=== PATIENT | female | born 1955 | race Hispanic/Latino ===

== ENCOUNTER → 2017-12-28 | Outpatient (CLI) | payer SELFPAY ==
[~2017-12-28] MED LIST: LIDOCAINE VISC 2% SOLN 15 ML UDC ONE; LIDOCAINE/PRILOCAINE 2.5-2.5% KIT ONE
== END ==
LOC: WCC 16:18
PROVIDERS: ATTEND Family Medicine Adult Medicine
DX: T81.89XA Other complications of procedures, not elsewhere classified, initial encounter (principal); M96.89 Other intraoperative and postprocedural complications and disorders of the musculoskeletal system; I10 Essential (primary) hypertension; K76.9 Liver disease, unspecified

== ENCOUNTER → 2018-01-01 | Outpatient (CLI) | payer OTHER ==
[2018-01-01 09:10] LABS: BASOPHILS % 0.6 % (0.0-1.0); EOSINOPHILS % 0.6 % (0.0-6.0); HEMATOCRIT 37.8 % (34.2-44.1); HEMOGLOBIN 12.3 g/dL (12.0-16.0); LYMPHOCYTES # (AUTO) 1.6 (1.0-3.2); LYMPHOCYTES % 29.7 % (18.0-39.1); MEAN CORPUSCULAR HEMOGLOBIN 30.6 pg (28-32); MEAN CORPUSCULAR HGB CONC 32.5 g/dL (31-35); MONOCYTES # (AUTO) 0.4 (0.2-0.8); MONOCYTES % 7.4 % (4.4-11.3); NEUTROPHILS # (AUTO) 3.3 (2.1-6.9); NEUTROPHILS % 61.5 % (38.7-80.0); PLATELET COUNT 315 x10e3/uL (140-360); RED BLOOD COUNT 4.02 x10e6/uL (3.6-5.1); RED CELL DISTRIBUTION WIDTH 13.2 % (11.7-14.4)
[2018-01-01 09:33] LABS: ALANINE AMINOTRANSFERASE 20 IU/L (0-55); ALBUMIN 3.9 g/dL (3.5-5.0); ALBUMIN/GLOBULIN RATIO 1.1 (0.8-2.0); ALKALINE PHOSPHATASE 97 IU/L (40-150); ANION GAP 15.3 mmol/L (8-16); BLOOD UREA NITROGEN 23 mg/dL (7-26); BUN/CREATININE RATIO 34 (6-25); CARBON DIOXIDE 27 mmol/L (22-29); CHLORIDE 104 mmol/L (98-107); CREATININE, SERUM 0.67 mg/dL (0.57-1.11); EST GLOMERULAR FILTRATION RATE > 60 ML/MIN (60-); GLUCOSE 90 mg/dL (74-118); POTASSIUM 4.3 mmol/L (3.5-5.1); SODIUM 142 mmol/L (136-145)
[2018-01-01 09:53] LABS: ERYTHROCYTE SEDIMENTATION RATE 55 mm/hr (0-20)
== END ==
LOC: LAB 08:33
PROVIDERS: ATTEND Family Medicine Adult Medicine
DX: S01.80XA Unspecified open wound of other part of head, initial encounter (principal)
CPT/HCPCS: 36415; 80053; 83036; 84134; 85025; 85651; 86140

== ENCOUNTER → 2018-01-04 | Outpatient (CLI) | payer SELFPAY | LOC: WCC 01:00 | PROVIDERS: ATTEND Family Medicine Adult Medicine | DX: T81.89XA Other complications of procedures, not elsewhere classified, initial encounter (principal); M96.89 Other intraoperative and postprocedural complications and disorders of the musculoskeletal system; I10 Essential (primary) hypertension; K76.9 Liver disease, unspecified ==

== ENCOUNTER → 2018-01-11 | Outpatient (CLI) | payer SELFPAY | LOC: WCC 12:46 | PROVIDERS: ATTEND Family Medicine Adult Medicine | DX: T81.89XA Other complications of procedures, not elsewhere classified, initial encounter (principal); M96.89 Other intraoperative and postprocedural complications and disorders of the musculoskeletal system; I10 Essential (primary) hypertension; K76.9 Liver disease, unspecified ==

== ENCOUNTER → 2018-01-18 | Outpatient (CLI) | payer SELFPAY | LOC: WCC 15:09 | PROVIDERS: ATTEND Family Medicine Adult Medicine | DX: T81.89XA Other complications of procedures, not elsewhere classified, initial encounter (principal); M96.89 Other intraoperative and postprocedural complications and disorders of the musculoskeletal system; I10 Essential (primary) hypertension; K76.9 Liver disease, unspecified ==

== ENCOUNTER → 2018-01-23 | Outpatient (CLI) | payer SELFPAY | LOC: WCC 12:06 | PROVIDERS: ATTEND Family Medicine Adult Medicine | DX: T81.89XA Other complications of procedures, not elsewhere classified, initial encounter (principal); M96.89 Other intraoperative and postprocedural complications and disorders of the musculoskeletal system; I10 Essential (primary) hypertension; K76.9 Liver disease, unspecified ==

== ENCOUNTER → 2018-01-30 | Outpatient (CLI) | payer SELFPAY | LOC: EDSEX → WCC 12:27 | PROVIDERS: ATTEND Family Medicine Adult Medicine | DX: T81.89XA Other complications of procedures, not elsewhere classified, initial encounter (principal); I10 Essential (primary) hypertension; K76.9 Liver disease, unspecified; M96.89 Other intraoperative and postprocedural complications and disorders of the musculoskeletal system ==

== ENCOUNTER → 2018-02-06 | Outpatient (CLI) | payer SELFPAY | LOC: WCC 02-05 16:34 | PROVIDERS: ATTEND Family Medicine Adult Medicine | DX: T81.89XA Other complications of procedures, not elsewhere classified, initial encounter (principal); M96.89 Other intraoperative and postprocedural complications and disorders of the musculoskeletal system; I10 Essential (primary) hypertension; K76.9 Liver disease, unspecified ==

== ENCOUNTER → 2018-02-20 | Outpatient (CLI) | payer SELFPAY ==
[~2018-02-20] MED LIST changes: -LIDOCAINE VISC 2% SOLN 15 ML UDC ONE
== END ==
LOC: WCC 11:46
PROVIDERS: ATTEND Family Medicine Adult Medicine
DX: T81.89XA Other complications of procedures, not elsewhere classified, initial encounter (principal); M96.89 Other intraoperative and postprocedural complications and disorders of the musculoskeletal system; I10 Essential (primary) hypertension; K76.9 Liver disease, unspecified

== ENCOUNTER → 2018-02-27 | Outpatient (CLI) | payer SELFPAY | LOC: WCC 11:06 | PROVIDERS: ATTEND Family Medicine Adult Medicine | DX: T81.89XA Other complications of procedures, not elsewhere classified, initial encounter (principal); M96.89 Other intraoperative and postprocedural complications and disorders of the musculoskeletal system; I10 Essential (primary) hypertension; K76.9 Liver disease, unspecified ==

== ENCOUNTER → 2018-03-06 | Outpatient (CLI) | payer SELFPAY | LOC: EDSEX → WCC 12:12 | PROVIDERS: ATTEND Family Medicine Adult Medicine | DX: T81.89XA Other complications of procedures, not elsewhere classified, initial encounter (principal); M96.89 Other intraoperative and postprocedural complications and disorders of the musculoskeletal system; I10 Essential (primary) hypertension; K76.9 Liver disease, unspecified ==

== ENCOUNTER → 2018-03-13 | Outpatient (CLI) | payer SELFPAY | LOC: EDSEX → WCC 10:10 | PROVIDERS: ATTEND Family Medicine Adult Medicine | DX: T81.89XA Other complications of procedures, not elsewhere classified, initial encounter (principal); M96.89 Other intraoperative and postprocedural complications and disorders of the musculoskeletal system; I10 Essential (primary) hypertension; K76.9 Liver disease, unspecified ==

== ENCOUNTER → 2018-03-20 | Outpatient (CLI) | payer SELFPAY | LOC: EDSEX → WCC 09:18 | PROVIDERS: ATTEND Family Medicine Adult Medicine | DX: T81.89XA Other complications of procedures, not elsewhere classified, initial encounter (principal); M96.89 Other intraoperative and postprocedural complications and disorders of the musculoskeletal system; I10 Essential (primary) hypertension; K76.9 Liver disease, unspecified ==

== ENCOUNTER → 2018-03-27 | Outpatient (CLI) | payer SELFPAY | LOC: EDSEX → WCC 12:43 | PROVIDERS: ATTEND Family Medicine Adult Medicine | DX: T81.89XA Other complications of procedures, not elsewhere classified, initial encounter (principal); M96.89 Other intraoperative and postprocedural complications and disorders of the musculoskeletal system; I10 Essential (primary) hypertension; K76.9 Liver disease, unspecified ==

== ENCOUNTER → 2018-04-03 | Outpatient (CLI) | payer SELFPAY | LOC: EDSEX → WCC 10:31 | PROVIDERS: ATTEND Family Medicine Adult Medicine | DX: T81.89XA Other complications of procedures, not elsewhere classified, initial encounter (principal); M96.89 Other intraoperative and postprocedural complications and disorders of the musculoskeletal system; I10 Essential (primary) hypertension; K76.9 Liver disease, unspecified ==

== ENCOUNTER → 2018-04-10 | Outpatient (CLI) | payer SELFPAY | LOC: EDSEX → WCC 08:33 | PROVIDERS: ATTEND Family Medicine Adult Medicine | DX: T81.89XA Other complications of procedures, not elsewhere classified, initial encounter (principal); M96.89 Other intraoperative and postprocedural complications and disorders of the musculoskeletal system; I10 Essential (primary) hypertension; K76.9 Liver disease, unspecified ==

== ENCOUNTER → 2018-04-17 | Outpatient (CLI) | payer SELFPAY | LOC: WCC 12:19 | PROVIDERS: ATTEND Family Medicine Adult Medicine | DX: T81.89XA Other complications of procedures, not elsewhere classified, initial encounter (principal); M96.89 Other intraoperative and postprocedural complications and disorders of the musculoskeletal system; I10 Essential (primary) hypertension; K76.9 Liver disease, unspecified ==

== ENCOUNTER → 2018-04-20 | Outpatient (CLI) | payer SELFPAY | LOC: WCC 10:45 | PROVIDERS: ATTEND Family Medicine Adult Medicine | DX: T81.89XA Other complications of procedures, not elsewhere classified, initial encounter (principal); M96.89 Other intraoperative and postprocedural complications and disorders of the musculoskeletal system; K76.9 Liver disease, unspecified; I10 Essential (primary) hypertension ==

== ENCOUNTER → 2018-04-24 | Outpatient (CLI) | payer SELFPAY ==
[~2018-04-24] MED LIST changes: +LIDOCAINE VISC 2% SOLN 15 ML UDC ONE
== END ==
LOC: WCC 10:30
PROVIDERS: ATTEND Family Medicine Adult Medicine
DX: T81.89XA Other complications of procedures, not elsewhere classified, initial encounter (principal); M96.89 Other intraoperative and postprocedural complications and disorders of the musculoskeletal system; I10 Essential (primary) hypertension; K76.9 Liver disease, unspecified
CPT/HCPCS: 87071; 87075; 87186; 87205

== ENCOUNTER → 2018-05-01 | Outpatient (CLI) | payer SELFPAY | LOC: WCC 10:50 | PROVIDERS: ATTEND Family Medicine Adult Medicine | DX: T81.89XA Other complications of procedures, not elsewhere classified, initial encounter (principal); M96.89 Other intraoperative and postprocedural complications and disorders of the musculoskeletal system; I10 Essential (primary) hypertension; K76.9 Liver disease, unspecified; A49.01 Methicillin susceptible Staphylococcus aureus infection, unspecified site ==

== ENCOUNTER → 2018-05-08 | Outpatient (CLI) | payer SELFPAY | LOC: WCC 09:29 | PROVIDERS: ATTEND Family Medicine Adult Medicine | DX: T81.89XA Other complications of procedures, not elsewhere classified, initial encounter (principal); M96.89 Other intraoperative and postprocedural complications and disorders of the musculoskeletal system; I10 Essential (primary) hypertension; K76.9 Liver disease, unspecified; A49.01 Methicillin susceptible Staphylococcus aureus infection, unspecified site ==

== ENCOUNTER → 2018-05-29 | Outpatient (CLI) | payer SELFPAY ==
[~2018-05-29] MED LIST changes: -LIDOCAINE VISC 2% SOLN 15 ML UDC ONE; -LIDOCAINE/PRILOCAINE 2.5-2.5% KIT ONE; +MUPIROCIN 2% OINT 22 GM TUBE ONE
== END ==
LOC: WCC 12:04
PROVIDERS: ATTEND Family Medicine Adult Medicine
DX: T81.89XA Other complications of procedures, not elsewhere classified, initial encounter (principal); M96.89 Other intraoperative and postprocedural complications and disorders of the musculoskeletal system; I10 Essential (primary) hypertension; K76.9 Liver disease, unspecified; A49.01 Methicillin susceptible Staphylococcus aureus infection, unspecified site

== ENCOUNTER → 2018-06-05 | Outpatient (CLI) | payer SELFPAY | LOC: WCC 10:49 | PROVIDERS: ATTEND Family Medicine Adult Medicine | DX: T81.89XA Other complications of procedures, not elsewhere classified, initial encounter (principal); M96.89 Other intraoperative and postprocedural complications and disorders of the musculoskeletal system; K76.9 Liver disease, unspecified; I10 Essential (primary) hypertension; A49.01 Methicillin susceptible Staphylococcus aureus infection, unspecified site ==

== ENCOUNTER → 2018-06-14 | Outpatient (CLI) | payer SELFPAY | LOC: WCC 12:41 | PROVIDERS: ATTEND Family Medicine Adult Medicine | DX: T81.89XA Other complications of procedures, not elsewhere classified, initial encounter (principal); M96.89 Other intraoperative and postprocedural complications and disorders of the musculoskeletal system; I10 Essential (primary) hypertension; K76.9 Liver disease, unspecified; A49.01 Methicillin susceptible Staphylococcus aureus infection, unspecified site ==

== ENCOUNTER → 2018-06-21 | Outpatient (CLI) | payer SELFPAY | LOC: WCC 06-20 13:35 | PROVIDERS: ATTEND Family Medicine Adult Medicine | DX: T81.89XA Other complications of procedures, not elsewhere classified, initial encounter (principal); M96.89 Other intraoperative and postprocedural complications and disorders of the musculoskeletal system; I10 Essential (primary) hypertension; K76.9 Liver disease, unspecified ==

== ENCOUNTER → 2018-07-05 | Outpatient (CLI) | payer SELFPAY ==
[~2018-07-05] MED LIST changes: +LIDOCAINE/PRILOCAINE 2.5-2.5% KIT ONE
== END ==
LOC: WCC 12:43
PROVIDERS: ATTEND Family Medicine Adult Medicine
DX: T81.89XA Other complications of procedures, not elsewhere classified, initial encounter (principal); M96.89 Other intraoperative and postprocedural complications and disorders of the musculoskeletal system; I10 Essential (primary) hypertension; K76.9 Liver disease, unspecified

== ENCOUNTER → 2018-07-19 | Outpatient (CLI) | payer SELFPAY | LOC: WCC 09:33 | PROVIDERS: ATTEND Family Medicine Adult Medicine | DX: T81.89XA Other complications of procedures, not elsewhere classified, initial encounter (principal); M96.89 Other intraoperative and postprocedural complications and disorders of the musculoskeletal system; I10 Essential (primary) hypertension; K76.9 Liver disease, unspecified ==